=== PATIENT | male | born 1980 | race Caucasian/White ===

== ENCOUNTER 2018-11-29 18:43 | Inpatient (IN) | payer MEDICAID ==
[~2018-11-29] VITALS: Ht 165.1 cm; Wt 71.2 kg
[2018-11-29 18:52] VITALS: BP_SYST 148
--- NOTE | 2018-11-29 19:00 | NUR ---
Patient triaged and placed in waiting room. VSS and patient appears in no acute distress at this time. Accompanied by family , awaiting available bed, and MD notified of need for MSE.Dr Caballero notified, US ordered by Dr Caballero.
--- NOTE | 2018-11-29 19:00 | NUR ---
patient arrived AOx4 with c/o left foot swelling x 4 days. patient has states it happen suddenly and over time. patients left foot is swollen, nontender. patients foot is cool to the touch. no pitting e patient denies any new changes. patient smokes 1 pack cigarettes a week. patient denies drug and ETOH use. patient has no past medical history. no other complaint or injury at this time.
--- NOTE | 2018-11-29 19:35 | NUR ---
patient refused medication
--- NOTE | 2018-11-29 19:35 | NUR ---
patient sent to ultrasound in stable condition
--- NOTE | 2018-11-29 19:36 | NUR ---
patient refused medication. notified.
[2018-11-29] MEDS ORDERED: ENOXAPARIN SODIUM 80 MG/0.8 ML SYRINGE SUBCUT ONE (19:45)
--- NOTE | 2018-11-29 19:45 | NUR ---
# 18 gauge angiocath placed to LAC. Use of asceptic technique. Opsite placed over site. Blood return noted. Blood for lab drawn from site. Flushed with 10 cc of normal saline. No evidence of infiltration noted. Patient tolerated well.
--- NOTE | 2018-11-29 19:49 | NUR ---
ER at bedside examining patient.
[2018-11-29 20:18] LABS: BASOPHILS % (AUTO) 1.2 % (0.0-2.0); EOSINOPHILS % (AUTO) 1.6 % (0.0-4.0); HEMATOCRIT 43.6 % (36-54); HEMOGLOBIN 15.3 g/dL (14.0-18.0); LYMPHOCYTES # (AUTO) 1.6 K/uL (1.0-5.5); LYMPHOCYTES % (AUTO) 49.9 % (20.5-51.5); MEAN CORPUSCULAR HEMOGLOBIN 30 pg (27-31); MEAN CORPUSCULAR HGB CONC 35 % (32-36); MEAN CORPUSCULAR VOLUME 85 fL (79.0-98.0); MONOCYTES # (AUTO) 0.4 K/uL (0.0-1.0); NEUTROPHILS % (AUTO) 33.3 % (40.0-70.0); PLATELET COUNT (AUTO) 155 K/uL (130-430); RED BLOOD CELL COUNT(AUTO) 5.14 MIL/uL (4.2-6.2); RED CELL DISTRIBUTION WIDTH 13.3 % (9.0-15.0); WHITE BLOOD COUNT (AUTO) 3.1 K/uL (4.8-10.8)
[2018-11-29 20:26] LABS: CALCIUM 8.9 mg/dL (8.4-11.0); CREATININE 0.91 mg/dL (0.55-1.30); POTASSIUM 3.8 mmol/L (3.5-5.1)
[2018-11-29 20:30] LABS: INR 1.1 (0.80-1.20); PROTHROMBIN TIME 10.7 SECS (9.5-12.5)
[2018-11-29 20:31] LABS: ALBUMIN 4.2 g/dL (3.4-4.8); TOTAL BILIRUBIN 0.7 mg/dL (0.0-1.0)
[2018-11-29 21:30] LABS: BILIRUBIN,URINE NEGATIVE (NEGATIVE); BLOOD, URINE NEGATIVE (NEGATIVE); CLARITY/URINE CLEAR (CLEAR); COLOR,URINE YELLOW (YELLOW); GLUCOSE,URINE NEGATIVE (NEGATIVE); KETONES,URINE NEGATIVE (NEGATIVE); LEUKOCYTE ESTERASE ,URINE NEGATIVE (NEGATIVE); NITRITE, URINE NEGATIVE (NEGATIVE); PROTEIN URINE NEGATIVE (NEGATIVE); UROBILINOGEN,URINE 0.2 (0.2-1.0)
--- NOTE | 2018-11-29 22:16 | NUR ---
ER Dr. Kidd at bedside explaining results to patient.
[2018-11-29] MEDS ORDERED: ENOXAPARIN SODIUM 60 MG/0.6 ML SYRINGE SUBCUT SCH (23:00)
--- NOTE | 2018-11-29 23:25 | NUR ---
ADMISSION NOTE Received patient from ER via [facility], received report from VASYL Senior. Patient admitted with diagnosis of DVT. Patient oriented to hospital routine, call light, toileting and safety-patient verbalized understanding.
[2018-11-29 23:43] VITALS: BP_SYST 122
--- NOTE | 2018-11-29 23:45 | NUR ---
Initial RN notes Received pt from ED via [facility]. Diagnosis DVT. Pt AAOx4, VSS, afebrile. No s/s distress noted. IV saline lock L. AC 18G clear and patent. L. foot 3+ edema noted. Oriented to call light/room, pt verbalized understanding. Call light within reach. Belonging list done. To monitor.
--- NOTE | 2018-11-30 02:05 | NUR ---
Rounds Pt asleep, no s/s distress noted. Call light within reach. Bed low, locked, siderails up x2. To monitor
--- NOTE | 2018-11-30 04:15 | NUR ---
Rounds Pt asleep, no s/s distress noted. Call light within reach. Bed low, locked, siderails up x2. To monitor.
--- NOTE | 2018-11-30 05:45 | NUR ---
Closing notes Pt asleep, easily arousable. No s/s distress noted. IV saline lock L. AC 18G good blood return. Left foot 2+ edema no redness noted. Call light within reach. Bed low, locked, siderails up x2. To endorse to AM nurse.
--- NOTE | 2018-11-30 07:40 | NUR ---
opening note patient is resting in bed, A&Ox4, assessment completed, educated design printer balloon light system and plan of care, patient verbalized understanding, no signs of distress, no needs addressed at this time, fall/safety precautions in place.
[2018-11-30 08:06] VITALS: BP_SYST 117
[2018-11-30] MEDS: ENOXAPARIN SODIUM 80 MG/0.8 ML SYRINGE SUBCUT SCH ×2 (08:31→22:05)
[2018-11-30] MEDS ORDERED: ENOXAPARIN SODIUM 60 MG/0.6 ML SYRINGE SUBCUT SCH (09:00)
--- NOTE | 2018-11-30 10:26 | NUR ---
CONSULT DR. CHÁVEZ CALLED SPOKE TO [facility] DIALED [phone] KNIGHT
[2018-11-30] MEDS ORDERED: FLU VACC QS2019-20 36MOS UP/PF 60 MCG/0.5 ML SYRINGE I.M. PRN (10:45)
--- NOTE | 2018-11-30 10:50 | NUR ---
rounds patient is sitting in bed, visitor in the room, patient asked if his children can be brought to the room so they can see him, I educated him that we are in flu season and the visiting restrictions but that I can take him to the lobby to see them, patient stated "no that's fine then".
[2018-11-30] MEDS ORDERED: ACETAMINOPHEN 325 MG TABLET PO PRN (11:00)
--- NOTE | 2018-11-30 12:37 | NUR ---
rounds patient resting in bed, visitors in the room, no signs of distress, patient states no needs at this time.
[2018-11-30 13:04] VITALS: BP_SYST 119
--- NOTE | 2018-11-30 14:55 | NUR ---
rounds patient is resting in bed, eyes closed breathing easy and nonlabored, no needs addressed at this time, fall/safety precautions in place.
[2018-11-30 16:38] VITALS: BP_SYST 133
--- NOTE | 2018-11-30 16:55 | NUR ---
Dr Almodovar consult came to see patient, new orders were received and clarified.
--- NOTE | 2018-11-30 18:50 | NUR ---
closing note patient is resting in bed, educated him on the protocol for the flu vaccine, patient verbalized understanding, no other needs at this time, fall/safety precautions in place, will endorse report to noc shift nurse to continue with care, patient ambulates steady to bathroom.
[2018-11-30 20:00] VITALS: BP_SYST 117
--- NOTE | 2018-11-30 21:00 | NUR ---
LEFT LOWER EXTREMITY Left below knee, leg to foot with non-pitting edema. No redness noted @ site. Pulse faint to left foot.
--- NOTE | 2018-11-30 22:10 | NUR ---
FLU VACCINE Pt requested to receive the flu vaccine this evening. Flu vaccine was administered.
[2018-12-01 01:30] VITALS: BP_SYST 123
[2018-12-01 07:02] LABS: LACTATE DEHYDROGENASE 149 U/L (85-227)
[2018-12-01 07:04] LABS: C-REACTIVE PROTEIN QUANT < 0.2 mg/dL (0-0.5)
[2018-12-01 07:05] LABS: HEMATOCRIT 43.5 % (36-54); HEMOGLOBIN 15.2 g/dL (14.0-18.0); MEAN CORPUSCULAR HEMOGLOBIN 30 pg (27-31); MEAN CORPUSCULAR HGB CONC 35 % (32-36); MEAN CORPUSCULAR VOLUME 85 fL (79.0-98.0); PLATELET COUNT (AUTO) 133 K/uL (130-430); RED BLOOD CELL COUNT(AUTO) 5.14 MIL/uL (4.2-6.2); RED CELL DISTRIBUTION WIDTH 12.8 % (9.0-15.0); RETICULOCYTE COUNT 0.8 % (0.5-1.5); WHITE BLOOD COUNT (AUTO) 2.8 K/uL (4.8-10.8)
--- NOTE | 2018-12-01 07:40 | NUR ---
opening note patient is resting in bed, A&Ox4, assessment completed, educated irrigation supervisor light system and plan of care, patient verbalized understanding, no signs of distress, no needs addressed at this time, fall/safety precautions in place.
[2018-12-01 08:00] VITALS: BP_SYST 107
[2018-12-01] MEDS: ENOXAPARIN SODIUM 80 MG/0.8 ML SYRINGE SUBCUT SCH (08:12)
--- NOTE | 2018-12-01 10:00 | NUR ---
rounds patient is resting in bed, eyes closed breathing easy and nonlabored, no needs addressed at this time, fall/safety precautions in place.
[2018-12-01 10:46] LABS: ATYPICAL LYMPHOCYTES % 6 % (0-0); BAND % (MANUAL) 0 % (0-6); BASOPHILS % (MANUAL) 0 % (0-2); EOSINOPHILS % (MANUAL) 2 % (0-7); LYMPHOCYTES % (MANUAL) 48 % (20-46); MONOCYTES % (MANUAL) 15 % (0-11)
[2018-12-01] MEDS ORDERED: APIX5TAB PO ×2 (11:19→11:20)
[2018-12-01 11:24] VITALS: BP_SYST 112
[2018-12-01 11:27] LABS: ERYTHROCYTE SEDIMENTATION RATE 2 MM/HR (0-15)
[2018-12-01 12:09] VITALS: BP_SYST 112
--- NOTE | 2018-12-01 12:25 | NUR ---
D/C Patient Patient given medication reconciliation form and D/C instructions. Exit Care provided. Patient verbalized understanding. MD discussed with patient the results and treatment provided. Ambulatory with steady gait for discharge to home. Patient in stable condition, ID band removed. IV catheter removed, intact and dressing applied, no active bleeding. Rx of eliquis given. Patient educated on pain management. All belongings sent with patient.
--- NOTE | 2018-12-01 14:03 | NUR ---
Dredge Pipe Installer: at pt. and Roshni Lloyd's request, write a letter for pt. to take to employer. BURRITO MAKER took down necessary info confirmed with pt. and wrote a form letter for pt. to take back to his work. BURRITO MAKER gave to Rn who offered to take to pt. BURRITO MAKER will remain available as needed.
[2018-12-02 07:06] LABS: HEPATITIS A AB, IgM Negative (Negative); HEPATITIS B CORE AB, IgM Negative (Negative); HEPATITIS B SURFACE AG Negative (Negative)
[2018-12-02 13:15] LABS: FOLATE (FOLIC ACID) >20.0 ng/mL (>3.0)
== END 2018-12-01 12:25 | disposition home or self-care (01) | DRG 197 ==
LOC: SED 18:43 → STU 22:50
PROVIDERS: ADMIT Internal Medicine Hospice and Palliative Medicine; ATTEND Internal Medicine Hospice and Palliative Medicine
DX: I82.432 Acute embolism and thrombosis of left popliteal vein (principal); D68.59 Other primary thrombophilia; D72.819 Decreased white blood cell count, unspecified; F17.210 Nicotine dependence, cigarettes, uncomplicated; Z79.01 Long term (current) use of anticoagulants; Z79.899 Other long term (current) drug therapy
CPT/HCPCS: 36415; 71045; 80053; 81003; 82607; 82746; 83615-TC; 85007; 85025; 85027; 85044-TC; 85610-TC; 85651-TC; 85730-TC; 86140; 86705; 86709; 87340; 93005; 93971; 96372; 99285; G0378; J1650; Q2037

== ENCOUNTER 2018-12-04 21:26 | Emergency (ER) | payer MEDICAID ==
[~2018-12-04] VITALS: Ht 162.6 cm; Wt 72.6 kg
[~2018-12-04 21:26] MED LIST: APIX5TAB PO
[2018-12-04 21:33] VITALS: BP_SYST 116
[2018-12-05] MEDS ORDERED: ONDANSETRON 4 MG ODT TAB PO ONE (02:15)
[2018-12-05] MEDS ORDERED: HYDROcodone/ACETAMIN 5-325 MG TAB (NORCO/ VICODIN) PO ONE (02:15)
[2018-12-05 02:27] VITALS: BP_SYST 116
== END 2018-12-05 02:27 | disposition home or self-care (01) ==
LOC: SED 21:26
DX: I82.402 Acute embolism and thrombosis of unspecified deep veins of left lower extremity (principal); Z79.899 Other long term (current) drug therapy
CPT/HCPCS: 99283; Q0162

== ENCOUNTER 2019-01-30 18:58 | Emergency (ER) | payer MEDICAID ==
[~2019-01-30] VITALS: Ht 165.1 cm; Wt 71.7 kg
[2019-01-30 19:40] VITALS: BP_SYST 131
--- NOTE | 2019-01-30 19:40 | NUR ---
Pt c/o sore throat with body aches, H/A, and feeling tired since this AM. Cough x 2 months. -N/V/D. Pt presents a bottle of Eliquis 5 mg and states that he takes 1 q day r/t DVT LLE Dx 2 months ago.
--- NOTE | 2019-01-30 19:40 | NUR ---
Pt ambulatory to bed 3 for evaluation
--- NOTE | 2019-01-30 20:23 | NUR ---
Dr. Kidd at bedside.
[2019-01-30] MEDS ORDERED: NACL 0.9% 1,000 ML IV ONE (20:25)
[2019-01-30] MEDS ORDERED: ACETAMINOPHEN 325 MG TABLET PO ONE (20:30)
[2019-01-30 21:10] LABS: STREPTOCOCCUS A SCREEN (RAPID) NEGATIVE (NEGATIVE)
[2019-01-30 21:19] LABS: INFLUENZA A&B ANTIGEN SCREEN NEGATIVE FOR A & B (NEGATIVE)
[2019-01-30 21:24] LABS: CALCIUM 8.9 mg/dL (8.4-11.0); CREATININE 0.83 mg/dL (0.55-1.30); POTASSIUM 3.7 mmol/L (3.5-5.1)
[2019-01-30 21:26] LABS: EOSINOPHILS % (AUTO) 0.4 % (0.0-4.0); MEAN CORPUSCULAR HEMOGLOBIN 30 pg (27-31); MEAN CORPUSCULAR VOLUME 85 fL (79.0-98.0); MONOCYTES # (AUTO) 0.7 K/uL (0.0-1.0)
[2019-01-30 21:30] LABS: ALBUMIN 4.4 g/dL (3.4-4.8); TOTAL BILIRUBIN 1.1 mg/dL (0.0-1.0)
[2019-01-30] MEDS ORDERED: AMOXICILLIN 500 MG CAPSULE PO ONE (21:30)
[2019-01-30 21:38] LABS: HEMATOCRIT 41.2 % (36-54); HEMOGLOBIN 14.7 g/dL (14.0-18.0); MEAN CORPUSCULAR HGB CONC 36 % (32-36); RED BLOOD CELL COUNT(AUTO) 4.87 MIL/uL (4.2-6.2); WHITE BLOOD COUNT (AUTO) 6.8 K/uL (4.8-10.8)
[2019-01-30 21:39] LABS: BASOPHILS % (AUTO) 0.4 % (0.0-2.0); LYMPHOCYTES % (AUTO) 14.3 % (20.5-51.5); MONOCYTES % (AUTO) 10.7 % (1.7-9.3); NEUTROPHILS # (AUTO) 5.1 K/uL (1.8-7.7); NEUTROPHILS % (AUTO) 74.2 % (40.0-70.0); PLATELET COUNT (AUTO) 148 K/uL (130-430); RED CELL DISTRIBUTION WIDTH 12.5 % (9.0-15.0)
--- NOTE | 2019-01-30 22:00 | NUR ---
Pt resting quietly, even and non-labored respirations, T 100.8. NAD.
--- NOTE | 2019-01-30 23:35 | NUR ---
Patient given written and verbal discharge instructions and verbalizes understanding. ER MD discussed with patient the results and treatment provided. Patient in stable condition. ID arm band removed. IV catheter removed intact and dressing applied, no active bleeding. Rx of Penicillin VK given. Patient educated on pain management and to follow up with PMD. Pain Scale 0/10. Opportunity for questions provided and answered. Medication side effect fact sheet provided.
[2019-01-30 23:45] VITALS: BP_SYST 128
== END 2019-01-30 23:35 | disposition home or self-care (01) ==
LOC: SED 18:58
DX: J02.9 Acute pharyngitis, unspecified (principal); R13.10 Dysphagia, unspecified; Z79.899 Other long term (current) drug therapy; Z87.891 Personal history of nicotine dependence
CPT/HCPCS: 36415; 80053; 85025; 86403; 86710; 87081; 99283; J7030